=== PATIENT | male | born 1990 | race Caucasian/White ===

== ENCOUNTER 2024-11-15 06:40 | Emergency (ER) | payer OTHER, SELFPAY ==
[2024-11-15 07:10] VITALS: BP 123/77; PULSE 64; RESP 20; TEMP 36.8; O2SAT 97; BMI 30.4
[2024-11-15 07:54] LABS: IDNOW Serial# 58CA691E; Strep A Nucleic Acid Negative (Negative)
[2024-11-15 08:52] LABS: Influenza A PCR NEGATIVE (Negative); Influenza B PCR NEGATIVE (Negative); Resp Syncy Virus RNA Qual PCR NEGATIVE (Negative); SARS COV2 PCR INHOUSE NEGATIVE (Negative)
--- NOTE | 2024-11-15 09:45 | ED.URI ---
HPI - URI/Sore Throat General Chief Complaint: Upper Respiratory Symptoms Stated Complaint: flu like Time Seen by Provider: 11/15/24 09:26 Source: patient and RN notes reviewed Mode of arrival: ambulatory Limitations: no limitations History of Present Illness ED Provider: Lexi Dominguez PA-C HPI Narrative: This is a 34-year-old male, with no known medical problems, who presents emergency department complaints of body aches, headaches, sore throat, and dry cough x 2 days. Patient has been taking Tylenol for his symptoms which has provided him with some relief. He denies any fevers, chills, chest pain, shortness of breath. Denies any abdominal pain, nausea, vomiting or diarrhea. No urinary or bowel changes. No sick contacts. No other complaints or concerns at this time. MD elicited complaint: cough and sore throat Onset (ago): day(s) Consistency: constant Able to tolerate fluids by mouth: Yes Exacerbating factors: nothing Relieving factors: NSAID Associated symptoms: myalgias, sore throat and cough Treatments prior to arrival: none Related Data Previous Rx's ?Medication ?Instructions ?Recorded acetaminophen 500 mg tablet 500 mg PO Q6H PRN pain #30 tabs 11/15/24 (Tylenol Extra Strength) ibuprofen 600 mg tablet 600 mg PO Q6H PRN pain #30 tabs 11/15/24 Allergies Allergy/AdvReac Type Severity Reaction Status Date / Time No Known Allergies Allergy Verified 11/15/24 07:11 Review of Systems Review of Systems: Yes all other systems are reviewed and are negative Constitutional: Constitutional: Reports as per [facility] Social History Social History Advance Directives: No Advance Directives Information Provided: No Physical Exam Vital Signs: Vital Signs: Last Vital Signs Temp 98.2 F 11/15/24 07:10 Pulse 64 11/15/24 07:10 Resp 20 11/15/24 07:10 BP 123/77 11/15/24 07:10 Pulse Ox 97 11/15/24 07:10 O2 Del Method Room Air 11/15/24 07:10 BMI result Body Mass Index 30.4 Const: General: cooperative, comfortable and no acute distress Orientation/consciousness: patient oriented x3 Limitations: no limitations HEENT: Head: Yes normal to inspection, Yes normocephalic and Yes atraumatic Ears: hearing grossly normal bilaterally and TM's normal bilaterally General nose exam: Normal external nose present Face and sinus: Yes normal facial exam Mouth: Normal oral and palatal mucosa present, oropharynx normal and moist mucous membranes Throat: Yes posterior oropharynx normal Eyes: General: appearance normal, both eyes and all related structures Eyelids: Yes eyelids normal Conjunctivae: conjunctivae normal Sclerae: sclerae normal Pupils: Equal, round and reactive pupils present EOM: EOMs intact bilaterally Neck: Neck: Yes normal visual inspection, Yes full ROM and Yes no lymphadenopathy Lymphatic: no lymphadenopathy noted Chest: Chest palpation & inspection: normal inspection of the chest Resp: Effort & Inspection: normal respiratory effort and able to speak in complete sentences Auscultation: clear to auscultation bilaterally, no crackles, no rales, no rhonchi and no wheezes Cardio: Rate: regular rate Rhythm: regular rhythm Heart sounds: S1 normal heart sound present and S2 normal heart sound present GI: Inspection: Yes normal to inspection Skin: General skin exam: no rashes or lesions noted Trauma: no lacerations or abrasions Wounds: no wounds Neuro: General: patient oriented x3 and moves all extremities Cranial nerves: Yes Equal, round and reactive pupils present Extrem: General: Yes normal to inspection Right upper extremity: normal to inspection Left upper extremity: normal to inspection Right lower extremity: normal to inspection Left lower extremity: normal to inspection Medical Decision Making Medical Decision Making [facility] Narrative: This is a 34-year-old male, with no known medical problems, who presents emergency department with complaints of body aches, headaches, sore throat and cough x2 days. On arrival, vital signs within normal limits. He is speaking full sentences under no acute distress. Lungs are clear to auscultation bilaterally. Oropharynx is nonerythematous, no tonsillar hypertrophy or exudates. No trismus, drooling, or dysphonia. Differential diagnoses include flu, COVID, RSV, strep. Patient well-appearing, likely viral in nature as he tested negative for COVID, flu, RSV, and strep. Discussed conservative measures for treatment. Given strict return precautions. He understands and agrees with plan. Patient stable for discharge Differential Diagnosis Differential Diagnoses: The differential diagnosis associated with the presentation includes See above Lab Data [facility] Lab Attestation statement: I reviewed the patient's lab results. Negative Labs: Lab Results 11/15/24 Range/Units 07:30 Influenza Type A (PCR) NEGATIVE (Negative) Influenza Type B (PCR) NEGATIVE (Negative) RSV RNA Qual (PCR) NEGATIVE (Negative) SARS-CoV-2 RNA (RT-PCR) NEGATIVE (Negative) S. pyogenes GrpA MEGAN Negative (Negative) Discharge Plan Discharge Clinical Impression: Upper respiratory infection Patient Disposition: Home, Self-Care Instructions: Upper Respiratory Infection (ED) Additional Instructions: You were seen in the emergency department and tested negative for COVID, flu, RSV, and strep throat. You likely have a virus causing you to have the symptoms. Please drink plenty of fluids get plenty of rest. Alternate between ibuprofen and or Tylenol as needed for pain and symptoms. Your symptoms should improve over the course of several days, however if they worsen, or you develop any new symptoms including but not limited to inability to swallow, chest pain, shortness of breath, please seek emergent care. Follow-up with your primary care physician. Prescriptions: New ibuprofen 600 mg tablet 600 mg PO Q6H PRN (Reason: pain) Qty: 30 0RF acetaminophen [Tylenol Extra Strength] 500 mg tablet 500 mg PO Q6H PRN (Reason: pain) Qty: 30 0RF Stand Alone Forms: Work/School Release Print Language: Serbian
[2024-11-15 09:57] VITALS: BP 123/77; PULSE 64; RESP 20; TEMP 36.8; O2SAT 97
== END 2024-11-15 10:01 | disposition home or self-care (01) ==
PROVIDERS: Emergency Provider Emergency Medicine
DX: J06.9 Acute upper respiratory infection, unspecified (principal); R05.9 Cough, unspecified; J02.9 Acute pharyngitis, unspecified; Z03.818 Encounter for observation for suspected exposure to other biological agents ruled out
CPT/HCPCS: 0241U; 87651; 99282; 99283

== ENCOUNTER 2024-12-18 02:59 | Emergency (ER) | payer OTHER, SELFPAY ==
[2024-12-18 03:02] VITALS: BP 128/81; PULSE 87; RESP 16; TEMP 36.4; O2SAT 97; BMI 29.8
--- NOTE | 2024-12-18 05:21 | ED_ITS ---
HPI - Back Pain/Injury General Chief Complaint: Extremity Injury, Lower Stated Complaint: right leg pain Time Seen by Provider: 12/18/24 05:15 Source: patient Mode of arrival: ambulatory Limitations: no limitations History of Present Illness ED Provider: HPI Narrative: Patient has chronic back pain since 2019 comes here for increased pain in the right sciatic area radiating to the right leg for last 3 days no recent fall or injury no bladder or bowel involvement Related Data Previous Rx's ?Medication ?Instructions ?Recorded acetaminophen 500 mg tablet 500 mg PO Q6H PRN pain #30 tabs 11/15/24 (Tylenol Extra Strength) ibuprofen 600 mg tablet 600 mg PO Q6H PRN pain #30 tabs 11/15/24 cyclobenzaprine 10 mg tablet 10 mg PO Q8H #20 tabs 12/18/24 ibuprofen 600 mg tablet 600 mg PO Q6H PRN fever or pain 12/18/24 #30 tabs Allergies Allergy/AdvReac Type Severity Reaction Status Date / Time No Known Allergies Allergy Verified 12/18/24 03:03 Review of Systems Review of Systems: Yes all other systems are reviewed and are negative [facility] [place] Social History Social History Advance Directives: No Do you have a plan to hurt others: No Plan Physical Exam Vital Signs: Vital Signs: Last Vital Signs Temp 97.5 F 12/18/24 03:02 Pulse 87 12/18/24 03:02 Resp 16 12/18/24 03:02 BP 128/81 12/18/24 03:02 Pulse Ox 97 12/18/24 03:02 O2 Del Method Room Air 12/18/24 03:02 BMI result Body Mass Index 29.8 Appearance: Alert. Oriented X3. No acute distress. ENT: Pharynx normal. Oral Mucosa moist Neck: Normal inspection. Neck supple. CVS: Normal heart rate and rhythm. Pulses normal. Respiratory: No respiratory distress. Equal air entry bilateral, no wheezing/rales/rhonchi Abdomen: Soft and nontender. Bowel sounds are present, no mass palpable, no CVA tenderness Skin: Skin warm and dry. Normal skin color. Normal skin turgor. Extremities: No lower extremity edema. No calf tenderness back: Tenderness right sciatic area SLR positive at 60 degrees motor sensory deficit no midline tenderness Neuro: Oriented X 3. No motor deficit. No sensory deficit.No cerebellar signs , cranial nerves II-XII intact Discharge Plan Discharge Clinical Impression: Acute right-sided back pain with sciatica Patient Disposition: Home, Self-Care Instructions: Sciatica (ED) Additional Instructions: Take ibuprofen and muscle relaxant as prescribed Stretching Exercises for lower back as advised Prescriptions: New cyclobenzaprine 10 mg tablet 10 mg PO Q8H Qty: 20 0RF ibuprofen 600 mg tablet 600 mg PO Q6H PRN (Reason: fever or pain) Qty: 30 0RF No Action ibuprofen 600 mg tablet 600 mg PO Q6H PRN (Reason: pain) Qty: 30 0RF acetaminophen [Tylenol Extra Strength] 500 mg tablet 500 mg PO Q6H PRN (Reason: pain) Qty: 30 0RF Print Language: Syriac
[2024-12-18] MEDS: Cyclobenzaprine HCl 10 MG TABLET PO (05:27)
[2024-12-18] MEDS: Ibuprofen 600 MG TABLET PO (05:28)
[2024-12-18 05:46] VITALS: BP 134/71; PULSE 77; RESP 17; TEMP 36.9; O2SAT 94
== END 2024-12-18 05:46 | disposition home or self-care (01) ==
PROVIDERS: Emergency Provider Internal Medicine
DX: M54.41 Lumbago with sciatica, right side (principal)
CPT/HCPCS: 99283; 99284